=== PATIENT | female | born 1955 | race Caucasian/White ===

== ENCOUNTER 2022-03-11 20:47 | Emergency (ER) | payer MEDICARE ==
[2022-03-11] MEDS ORDERED: Alum Hydrox/Mag Hydrox/Simeth 15 ML, Lidocaine 2% 15 ML PO ONE ×2 (21:31)
[2022-03-11 21:33] LABS: ESTIMATED GFR 56 mL/min (>60)
[2022-03-11 21:34] LABS: TROPONIN I HIGH SENSITIVITY < 4.0 pg/mL (<=60.3)
== END 2022-03-11 22:42 | disposition home or self-care (01) ==
LOC: JP.ED 20:47
DX: J98.01 Acute bronchospasm (principal); K21.00 Gastro-esophageal reflux disease with esophagitis, without bleeding; Z88.2 Allergy status to sulfonamides; Z79.899 Other long term (current) drug therapy; Z87.891 Personal history of nicotine dependence
CPT/HCPCS: 36415; 71046; 80053; 84484; 85025; 86140; 93005; 99285; A9270